=== PATIENT | female | born 1995 | race Caucasian/White ===

== ENCOUNTER → 2024-06-06 09:05 | Outpatient (REF) | payer OTHER, SELFPAY | LOC: PNTC 09:05 | PROVIDERS: ATTENDING PHYSICIAN Obstetrics & Gynecology | DX: Z36.0 Encounter for antenatal screening for chromosomal anomalies (principal); Z36.82 Encounter for antenatal screening for nuchal translucency | CPT/HCPCS: 76801; 76813 ==

== ENCOUNTER → 2024-07-04 07:46 | Outpatient (REF) | payer OTHER, SELFPAY | LOC: PNTC 07:46 | PROVIDERS: ATTENDING PHYSICIAN Obstetrics & Gynecology | DX: O99.210 Obesity complicating pregnancy, unspecified trimester (principal); O09.819 Supervision of pregnancy resulting from assisted reproductive technology, unspecified trimester | CPT/HCPCS: 76805 ==

== ENCOUNTER → 2024-08-01 15:50 | Outpatient (REF) | payer OTHER, SELFPAY | LOC: PNTC 15:50 | PROVIDERS: ATTENDING PHYSICIAN Obstetrics & Gynecology | DX: O99.210 Obesity complicating pregnancy, unspecified trimester (principal); O09.819 Supervision of pregnancy resulting from assisted reproductive technology, unspecified trimester | CPT/HCPCS: 76811; 76817 ==

== ENCOUNTER → 2024-09-12 16:17 | Outpatient (REF) | payer OTHER, SELFPAY | LOC: PNTC 16:17 | PROVIDERS: ATTENDING PHYSICIAN Obstetrics & Gynecology | DX: O99.210 Obesity complicating pregnancy, unspecified trimester (principal) | CPT/HCPCS: 76816 ==

== ENCOUNTER → 2024-10-26 15:26 | Outpatient (REF) | payer OTHER, SELFPAY | LOC: PNTC 15:26 | PROVIDERS: ATTENDING PHYSICIAN Obstetrics & Gynecology | DX: O99.210 Obesity complicating pregnancy, unspecified trimester (principal); O09.819 Supervision of pregnancy resulting from assisted reproductive technology, unspecified trimester | CPT/HCPCS: 76816 ==

== ENCOUNTER → 2024-11-09 15:28 | Outpatient (REF) | payer OTHER, SELFPAY | LOC: PNTC 15:28 | PROVIDERS: ATTENDING PHYSICIAN Obstetrics & Gynecology | DX: O99.213 Obesity complicating pregnancy, third trimester (principal) | CPT/HCPCS: 59025; 76815 ==

== ENCOUNTER → 2024-11-16 14:57 | Outpatient (REF) | payer OTHER, SELFPAY | LOC: PNTC 14:57 | PROVIDERS: ATTENDING PHYSICIAN Obstetrics & Gynecology | DX: O99.210 Obesity complicating pregnancy, unspecified trimester (principal); O09.819 Supervision of pregnancy resulting from assisted reproductive technology, unspecified trimester | CPT/HCPCS: 59025; 76815 ==

== ENCOUNTER → 2024-11-23 14:51 | Outpatient (REF) | payer OTHER, SELFPAY | LOC: PNTC 14:51 | PROVIDERS: ATTENDING PHYSICIAN Obstetrics & Gynecology | DX: O99.210 Obesity complicating pregnancy, unspecified trimester (principal); O09.819 Supervision of pregnancy resulting from assisted reproductive technology, unspecified trimester | CPT/HCPCS: 59025; 76816 ==

== ENCOUNTER 2024-11-30 15:32 | Observation (INO) | payer OTHER, SELFPAY ==
[2024-11-30 16:00] VITALS: BP 146/77; BMI 46.6
[2024-11-30 16:28] LABS: ALT (SGPT) < 10 U/L (0-35); AST (SGOT) 14 U/L (14-36); Albumin 3.1 g/dl (3.5-5.0); Alkaline Phosphatase 117 U/L (38-126); Blood Urea Nitrogen 6 mg/dl (7-17); Calcium 8.5 mg/dl (8.4-10.2); Carbon Dioxide 23 mmol/L (22-30); Chloride 104 mmol/L (98-107); Estimated Creatinine Clearance > 125 ml/min; Glucose 82 mg/dl (70-99); Potassium 4.7 mmol/L (3.5-5.1); Sodium 131 mmol/L (135-145); Total Protein 5.9 g/dl (6.3-8.2); eGFR > 60.00
[2024-11-30 16:30] LABS: Urine Character Slightly Cloudy (Clear)
[2024-11-30 17:08] LABS: Urine Squamous Cell >30 /LPF (Few)
[2024-11-30 17:09] LABS: Urine Red Blood Cell 0-2 /HPF (0-2)
[2024-11-30 17:29] LABS: Hematocrit 38.4 % (37.0-47.0); Hemoglobin 13.0 g/dL (12.0-16.0); Mean Corp Hgb Conc. 33.9 g/dL (33.0-37.0); Mean Corpuscular Volume 86.9 fL (81.0-99.0); Platelet Count 287 10^3/uL (130-400); Red Cell Dist. Width 12.8 % (11.5-14.5)
== END 2024-11-30 18:09 | disposition home or self-care (01) ==
LOC: PNTC-IN 15:32
PROVIDERS: ADMITTING PHYSICIAN Obstetrics & Gynecology; ATTENDING PHYSICIAN Obstetrics & Gynecology
DX: O99.213 Obesity complicating pregnancy, third trimester (principal); O09.813 Supervision of pregnancy resulting from assisted reproductive technology, third trimester; Z3A.37 37 weeks gestation of pregnancy; O99.283 Endocrine, nutritional and metabolic diseases complicating pregnancy, third trimester; E28.2 Polycystic ovarian syndrome; K21.9 Gastro-esophageal reflux disease without esophagitis; K44.9 Diaphragmatic hernia without obstruction or gangrene
CPT/HCPCS: 76815; 80053; 81003; 81015; 82570; 84156; 85027; G0378

== ENCOUNTER → 2024-12-07 16:00 | Outpatient (REF) | payer OTHER, SELFPAY | LOC: PNTC 16:00 | PROVIDERS: ATTENDING PHYSICIAN Obstetrics & Gynecology | DX: O99.213 Obesity complicating pregnancy, third trimester (principal); O09.823 Supervision of pregnancy with history of in utero procedure during previous pregnancy, third trimester | CPT/HCPCS: 59025; 76815 ==

== ENCOUNTER → 2024-12-14 15:49 | Outpatient (REF) | payer OTHER, SELFPAY | LOC: PNTC 15:49 | PROVIDERS: ATTENDING PHYSICIAN Student in an Organized Health Care Education/Training Program | DX: O99.213 Obesity complicating pregnancy, third trimester (principal); O09.823 Supervision of pregnancy with history of in utero procedure during previous pregnancy, third trimester | CPT/HCPCS: 59025; 76815 ==

== ENCOUNTER 2024-12-21 20:02 | Inpatient (IN) | payer OTHER, SELFPAY ==
[2024-12-21 20:05] VITALS: BMI 46.6
[2024-12-21 20:57] VITALS: BP 144/93
[2024-12-21] MEDS: CYTOTEC 50 MICROGRAM VAG (21:13)
[2024-12-21 21:18] LABS: Hematocrit 37.3 % (37.0-47.0); Hemoglobin 12.8 g/dL (12.0-16.0); Mean Corp Hgb Conc. 34.3 g/dL (33.0-37.0); Mean Corpuscular Volume 84.2 fL (81.0-99.0); Nucleated Red Blood Cells % 0 %; Platelet Count 288 10^3/uL (130-400); Red Cell Dist. Width 13.2 % (11.5-14.5)
[2024-12-21 21:34] LABS: ALT (SGPT) < 10 U/L (0-35); AST (SGOT) 14 U/L (14-36); Albumin 3.3 g/dl (3.5-5.0); Alkaline Phosphatase 129 U/L (38-126); Blood Urea Nitrogen 10 mg/dl (7-17); Calcium 9.2 mg/dl (8.4-10.2); Carbon Dioxide 23 mmol/L (22-30); Chloride 104 mmol/L (98-107); Estimated Creatinine Clearance > 125 ml/min; Glucose 101 mg/dl (70-99); Potassium 3.8 mmol/L (3.5-5.1); Sodium 131 mmol/L (135-145); Total Protein 6.3 g/dl (6.3-8.2); eGFR > 60.00
[2024-12-21] MEDS: LR 1000 IV (22:06)
[2024-12-22] MEDS: LR 1000 IV (01:56)
[2024-12-22] MEDS: STADOL 1 MG IV (02:50)
[2024-12-22] MEDS: FENTANYL/BUPIVACAINE 100 EPIDURAL (05:34)
[2024-12-22] MEDS: SUBLIMAZE 100 MCG EPIDURAL (05:34)
[2024-12-22] MEDS: ANCEF 10 IV (07:15)
[2024-12-22] MEDS: BICITRA 30 ML PO (07:15)
[2024-12-22] MEDS: TYLENOL 975 MG PO (07:16)
[2024-12-22] MEDS: ZITHROMAX INFUSION 250 IV (07:21)
[2024-12-22 08:07] LABS: Cord ABG Comment CORD BLOOD
[2024-12-22 08:07] LABS: Cord ABG Comment CORD BLOOD
[2024-12-22 08:17] LABS: B.E. Cord ABG -6.6 mMOL/L; HCO3 Cord ABG 22.9 mmol/L; O2 Saturation % Cord ABG 26.6 %; PCO2 Cord ABG 60 mmHg; PO2 Cord ABG 20 mmHg; pH Cord ABG 7.19
[2024-12-22 08:22] LABS: B.E. Cord ABG -8.9 mMOL/L; HCO3 Cord ABG 23.4 mmol/L; O2 Saturation % Cord ABG 8.5 %; PCO2 Cord ABG 77 mmHg; PO2 Cord ABG 13 mmHg; pH Cord ABG 7.09
[2024-12-22] MEDS: TORADOL 15 MG IV ×3 (09:22→21:36)
[2024-12-22] MEDS: TYLENOL 650 MG PO (11:49)
[2024-12-22] MEDS: PITOCIN 30 UNITS/NSS 500 ML IV (12:38)
[2024-12-22] MEDS: COLACE 100 MG PO (20:04)
[2024-12-22] MEDS: FLUSH (NSS) 3 FLUSH IV (21:36)
[2024-12-23] MEDS: FLUSH (NSS) 3 FLUSH IV (03:37)
[2024-12-23] MEDS: TORADOL 15 MG IV (03:37)
[2024-12-23 05:25] LABS: Hematocrit 33.4 % (37.0-47.0); Hemoglobin 10.9 g/dL (12.0-16.0); Mean Corp Hgb Conc. 32.6 g/dL (33.0-37.0); Mean Corpuscular Volume 87.7 fL (81.0-99.0); Platelet Count 242 10^3/uL (130-400); Red Cell Dist. Width 13.4 % (11.5-14.5)
--- NOTE | 2024-12-23 07:27 | W.PN.ANS.POP ---
Anesthesia Post Operative
- Anesthesia Post Op Note
Vital Signs Stable-See Nursing Note: Yes
Airway Patent: Yes
Adequate Pain Control: Yes
Change in Mental Status: No
Current Postoperative Nausea & Vomiting: No
Anesthesia Complications: No
General Anesthetic Recall: No (n/a)
Unplanned Admission: No
Post Op Hydration Adequate: Yes
[2024-12-23] MEDS: TYLENOL 650 MG PO ×2 (08:57→14:27)
[2024-12-23] MEDS: COLACE 100 MG PO ×2 (08:58→20:03)
[2024-12-23] MEDS: PRENATAL PLUS 1 TABLET PO (08:58)
[2024-12-23] MEDS: MOTRIN 600 MG PO ×2 (08:58→14:28)
[2024-12-23 15:51] LABS: Syphilis/T. pallidum Ab Reflex Negative (Negative)
[2024-12-24] MEDS: MOTRIN 600 MG PO ×3 (00:26→13:13)
[2024-12-24] MEDS: TYLENOL 650 MG PO ×3 (00:27→13:12)
[2024-12-24] MEDS: PRENATAL PLUS 1 TABLET PO (07:39)
[2024-12-24] MEDS: COLACE 100 MG PO (07:39)
== END 2024-12-24 14:09 | disposition home or self-care (01) | DRG 788 ==
LOC: LDRP 20:02
PROVIDERS: ADMITTING PHYSICIAN Obstetrics & Gynecology
PROC: 10D00Z1 Extraction of Products of Conception, Low, Open Approach (ICD-10-PCS; 2024-12-23)
DX: O48.0 Post-term pregnancy (principal); Z3A.40 40 weeks gestation of pregnancy; Z37.0 Single live birth; O69.81X0 Labor and delivery complicated by cord around neck, without compression, not applicable or unspecified; E28.2 Polycystic ovarian syndrome; O76 Abnormality in fetal heart rate and rhythm complicating labor and delivery
CPT/HCPCS: 36415; 80053; 82803; 85025; 85027; 86780; 86850; 86900; 86901; 88307